=== PATIENT | male | born 1995 | race Two or more races ===

== ENCOUNTER 2018-01-22 18:15 | Emergency (ER) | payer OTHER ==
[~2018-01-22] VITALS: Ht 180.3 cm; Wt 74.8 kg
[2018-01-22 18:21] VITALS: BP 134/80
[2018-01-22] MEDS ORDERED: RITUXAN10 MG/ML IV (18:25)
[2018-01-22] MEDS ORDERED: LIDOCAINE700 M1 TP (18:41)
[2018-01-22] MEDS ORDERED: ROBAXIN500 MG PO (18:41)
[2018-01-22] MEDS ORDERED: TYLENOL EXTRA500 MG ORAL (18:41)
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
[2018-01-22 18:45] VITALS: BP 134/80
[2018-01-22] MEDS ORDERED: Methocarbamol 500mg tab ORAL ONE (18:45)
== END 2018-01-22 18:50 | disposition home or self-care (01) ==
LOC: EMR 18:46
DX: M54.2 Cervicalgia (principal); M25.512 Pain in left shoulder; V43.52XA Car driver injured in collision with other type car in traffic accident, initial encounter; Y92.410 Unspecified street and highway as the place of occurrence of the external cause
CPT/HCPCS: 99283